=== PATIENT | female | born 1980 | race Caucasian/White ===

== ENCOUNTER → 2016-10-09 | Outpatient (CLI) | payer BC ==
--- NOTE | 2016-10-09 13:13 | RAD ---
Procedure: XR LUMBAR SPINE 2-3 VIEWS Exam Date: 10/09/2016 Ordering Provider: ABHILASH OVERTON Clinical Indication: Back pain Comparison: None Findings: There is no acute fracture or subluxation. Vertebral body heights and intervertebral disc spaces are preserved. Transitional lumbosacral anatomy. There are no lytic or sclerotic lesions. The sacroiliac joints are normal. Impression: 1. No acute fracture or subluxation of the lumbar spine. 2. Transitional lumbosacral anatomy. Electronically signed by: Macho Fang MD 10/09/2016 1:12 PM CDT
--- NOTE | 2016-10-09 13:30 | RAD ---
EXAM DESCRIPTION: Thoracic Spine,AP Lateral CLINICAL HISTORY: THORACIC NEURALIGIA COMPARISON: None. TECHNIQUE: 3 views FINDINGS: The thoracic vertebral bodies are in good AP alignment. The pedicles are intact. No dysraphic abnormality is seen. No significant degenerative changes are observed. IMPRESSION: Normal thoracic spine. Electronically signed by: Ramirez Amaro MD 10/09/2016 1:29 PM CDT
== END | disposition home or self-care (01) ==
LOC: RAD 10:39
PROVIDERS: ATTEND Chiropractor
DX: M54.14 Radiculopathy, thoracic region (principal)